=== PATIENT | male | born 1990 | race Two or more races ===

== ENCOUNTER 2019-06-19 09:27 | Emergency (ER) | payer OTHER ==
[~2019-06-19] VITALS: Ht 182.9 cm; Wt 99.4 kg
[2019-06-19 09:31] VITALS: BP 146/70
--- NOTE | 2019-06-19 09:55 | NUR ---
PT TO ROOM 31 PER PEDIS. PT C/O FLU LIKE SYMPTOMS THAT STARTED OVER THE WEEKEND WITH LOW GRADE FEVER. PT HAS BEEN EXPOSED TO CO-WORKERS THAT HAVE TESTED POSITIVE FOR COVID. PT PLACED IN GOWN, MONITORS APPLIED, CALL LIGHT GIVEN AND WARM BLANKET OFFERED. PT IS A/O X3, MOVES ALL EXTREMITIES, DENIES N/V/D, C/O WEAKNESS FEVER AND SORE THROAT.
== END 2019-06-19 11:03 | disposition home or self-care (01) ==
LOC: ED 10:07
DX: R06.00 Dyspnea, unspecified (principal); Z20.828 Contact with and (suspected) exposure to other viral communicable diseases; M79.10 Myalgia, unspecified site
CPT/HCPCS: 71045; 93005; 99285; U0001; 99284